=== PATIENT | male | born 1980 | race Two or more races ===

== ENCOUNTER → 2018-11-07 | Outpatient (CLI) | payer SELFPAY ==
--- NOTE | 2018-11-07 13:57 | PCVCIMAG ---
APPROVED REPORT Study performed: 11/07/2018 09:59:26 Exam: Stress Echocardiogram Indication: Chest pain , Hypertension, Hyperlipidemia Patient Location: Echo lab Stress Nurse: Priya Cooney RN Room #: 2 Status: routine Ht: 5 ft 7 in HR: 86 bpm BP: 160/80 mmHg Rhythm: NSR Medical History Medical History: HTN, Hyperlipidemia, borderline diabetes Cardiac Risk Factors: HTN, Hyperlipidemia Previous Cardiac Procedures: none Pretest Chest Pain Characteristics: No chest pain Exercise History: Physically active Procedure The patient underwent an Exercise Stress Test using the Cheikh Protocol. Blood pressure, heart rate, and EKG were monitored. An Echocardiogram was performed by vascular ultrasound technician in four stages in quad fashion. At peak stress, four selected images were obtained and placed side by side with resting images for comparison. Stress Test Details Stress Test: Exercise stress testing was performed using a Cheikh protocol. HR Resting HR: 86 bpmMax Heart Rate (APMHR): 180 bpm Max HR Achieved: 171 bpmTarget HR (85% APMHR): 153 bpm % of APMHR: 95 Recovery HR: 114 bpm HR response to stress: Normal HR response to stress BP Resting BP: 126/86 mmHg Max BP: 152/80 mmHg Recovery BP: 136/80 mmHg BP response to stress: Normal blood pressure response to stress. ECG Resting ECG: Sinus Rhythm Stress ECG: Sinus Rhythm ST Change: Non-ischemic Arrhythmia: rare PVC Recovery ECG: Sinus Rhythm Recovery ST Change: Non-ischemic Recovery Arrhythmia: None Clinical Reason for Termination: Maximal effort Stress Symptoms: leg fatigue Exercise duration: 10 min 40 sec Highest Stage Achieved: Stage 4: 4.2 mph at 16% grade. Exercise capacity: 13.7 METs Overall Exercise Capacity for Age: Good Scale: Active Angina Score: None No complications. Stress ECG Conclusion The patient exercised according to the CHEIKH protocol for 10:40 mins; achieving a work level of 13.7METS. The resting heart rate of 86 bpm barb to a maximum heart rate of 171 bpm. This value represent 95% of the maximal, age-predicted heart rate. The resting blood pressure of 126/86 mmHg, barb to a maximum blood pressure of 152/80 mmHg. The exercise test was stopped due to fatigue and dyspnea. Pre-Stress Echo The resting Echocardiogram showed normal left ventricular contractility with an estimated Ejection Fraction of about 55-60%. Normal wall motion in all segments on baseline images. Post-Stress Echo The stress Echocardiogram showed normal left ventricular contractility with an estimated Ejection Fraction of about 65-70%. Normal augmentation of wall motion in all segments on post stress images. Clinical No clinical or ECG evidence for ischemia. Conclusion Clinical Response: Non-ischemic Exercise Capacity: Superior Stress ECG Response: Non-ischemic Stress Echo Images: Non-ischemic No clinical, EKG or echocardiographic evidence for ischemia. No echocardiographic evidence for exercise induced ischemia. Normal stress echocardiogram with maximal exercise stress. No prior study available for comparison. <Conclusion> No clinical, EKG or echocardiographic evidence for ischemia. No echocardiographic evidence for exercise induced ischemia. Normal stress echocardiogram with maximal exercise stress.
== END | disposition home or self-care (01) ==
LOC: PCVCIMAG 10:23
PROVIDERS: ATTEND General Practice
DX: R07.9 Chest pain, unspecified (principal); I10 Essential (primary) hypertension; E78.5 Hyperlipidemia, unspecified
CPT/HCPCS: 93325; 93351